=== PATIENT | male | born 1995 | race Caucasian/White ===

== ENCOUNTER 2021-09-13 21:52 | Inpatient (IN) | payer BC, MEDICAID, OTHER ==
[~2021-09-13] VITALS: Ht 177.8 cm; Wt 145.0 kg
[2021-09-13 22:32] LABS: Albumin 3.6 g/dL (3.4-5.0); Calcium 9.1 mg/dL (8.5-10.1)
[2021-09-13 22:36] LABS: BUN/Creatinine Ratio 13.3; Bilirubin, Total 0.7 mg/dL (0.2-1.0); Total Protein 7.3 g/dL (6.4-8.2)
[2021-09-13 22:57] LABS: Urine Bacteria NONE SEEN /hpf (None Seen); Urine Blood TRACE /uL (Negative); Urine Specific Gravity 1.021 (1.001-1.035); Urine WBC 1 /hpf (0 - 3)
[2021-09-13 23:07] LABS: Basophils # (auto) 0 10 ^3/uL (0-0.2); Basophils % (auto) 0.3 % (0.0-2.0); Eosinophils # (auto) 0 10 ^3/uL (0-0.8); Eosinophils % (auto) 0.2 % (0.0-7.0); Hematocrit 35.7 % (41.0-53.0); Hemoglobin 13.2 g/dL (13.5-17.5); Lymphocytes # (auto) 0.9 10 ^3/uL (0.4-5.4); Lymphocytes % (auto) 14.9 % (10.0-50.0); Mean Corpuscular Hemoglobin 31.9 pg (28.0-32.0); Mean Corpuscular Volume 86.5 fL (80.0-100.0); Monocytes # (auto) 0.5 10 ^3/uL (0-1.3); Monocytes % (auto) 8.9 % (0.0-12.0); Neutrophils # (auto) 4.6 10 ^3/uL (1.6-8.6); Neutrophils % (auto) 75.7 % (37.0-80.0); Red Blood Cells 4.13 10^6/uL (4.5-5.90); Red Cell Distribution Width 12.8 % (11.8-14.3)
[2021-09-13 23:18] LABS: Mean Corpuscular Hgb Conc. 36.9 g/dL (32.0-36.0)
[2021-09-14] MEDS ORDERED: PIPERACILLIN-TAZOB 3.375GM 100 ML IV ONE (00:45)
[2021-09-14] MEDS ORDERED: SODIUM CHLORIDE 0.9% 1,000 ML IV ONE (02:45)
[2021-09-14] MEDS ORDERED: ACETAMINOPHEN 325 MG TAB PO PRN (02:45)
[2021-09-14] MEDS: ONDANSETRON HCL 4 MG/2 ML VIAL IV PRN ×2 (03:43→20:48)
[2021-09-14] MEDS: MORPHINE SULFATE 4 MG/ML SYR/VIAL IV PRN ×4 (03:44→20:47)
[2021-09-14 04:39] VITALS: BP 119/70
[2021-09-14] MEDS: metroNIDAZOLE 500MG/100ML 100 ML IV SCH ×3 (06:20→22:57)
[2021-09-14 09:00] VITALS: BP 115/77
[2021-09-14] MEDS: FAMOTIDINE (10MG/ML) 2ML VL IV SCH (09:42)
[2021-09-14] MEDS: ENOXAPARIN SOD 40 MG/0.4 ML SYRINGE SC SCH (09:42)
[2021-09-14] MEDS: levoFLOXacin 500MG 100 ML IV SCH (09:42)
[2021-09-14 11:32] LABS: Basophils # (auto) 0 10 ^3/uL (0-0.2); Basophils % (auto) 0.2 % (0.0-2.0); Eosinophils # (auto) 0 10 ^3/uL (0-0.8); Eosinophils % (auto) 0.3 % (0.0-7.0); Hematocrit 31.4 % (41.0-53.0)
[2021-09-14] MEDS ORDERED: BUPIVACAINE W/ EPINEPH 0.25% INJ 50ML MDV ONE (11:34)
[2021-09-14 11:35] LABS: Hemoglobin 11.5 g/dL (13.5-17.5); Lymphocytes # (auto) 0.8 10 ^3/uL (0.4-5.4); Lymphocytes % (auto) 16.9 % (10.0-50.0); Mean Corpuscular Hemoglobin 31.8 pg (28.0-32.0); Monocytes # (auto) 0.4 10 ^3/uL (0-1.3); Neutrophils # (auto) 3.4 10 ^3/uL (1.6-8.6); Neutrophils % (auto) 73.6 % (37.0-80.0); Nucleated Red Blood Cells % 0.2 %; Red Blood Cells 3.61 10^6/uL (4.5-5.90); Red Cell Distribution Width 13.1 % (11.8-14.3); White Blood Cell 4.6 10^3/uL (4.4-10.8)
[2021-09-14 11:37] LABS: Mean Corpuscular Hgb Conc. 36.6 g/dL (32.0-36.0)
[2021-09-14] MEDS ORDERED: SUCCINYLCHOLINE CHLORIDE 20 MG/ML 10ML VIAL IV ONE (11:40)
[2021-09-14] MEDS ORDERED: MIDAZOLAM HCL 2MG/2ML 2ml VIAL (1mg/ml) ONE (11:48)
[2021-09-14] MEDS ORDERED: fentaNYL CITRATE 100 MCG/2 ML VL ONE (11:48)
[2021-09-14 11:49] LABS: INR 1.24 (0.9-1.15)
[2021-09-14] MEDS ORDERED: PROPOFOL 10 MG/ML 20 ML IV ONE (11:51)
[2021-09-14 11:54] LABS: Potassium 3.4 mmol/L (3.5-5.1)
[2021-09-14 12:10] LABS: Albumin 3.2 g/dL (3.4-5.0); BUN/Creatinine Ratio 13.9; Bilirubin, Total 0.7 mg/dL (0.2-1.0); Calcium 8.6 mg/dL (8.5-10.1); Total Protein 6.6 g/dL (6.4-8.2)
[2021-09-14 12:11] LABS: INR 1.24 (0.9-1.15); Partial Thromboplastin Time 36.2 sec (23.6-33.0)
[2021-09-14] MEDS ORDERED: ROCURONIUM 10MG/ML 10ML VIAL IV ONE (12:46)
[2021-09-14] MEDS ORDERED: DexAMETHasone SOD PHOS 10MG/1ML VIAL INJ ONE (12:54)
[2021-09-14 13:00] VITALS: BP 114/71
[2021-09-14] MEDS ORDERED: metroNIDAZOLE 500MG/100ML 100 ML IV ONE (13:10)
[2021-09-14] MEDS ORDERED: GLYCOPYRROLATE 0.2 MG/ML 1ML VIAL ONE (13:24)
[2021-09-14] MEDS ORDERED: NEOSTIGMINE 1 MG/ML INJ (10mg/10ML VIAL) ONE (13:24)
[2021-09-14] MEDS ORDERED: METOCLOPRAMIDE HCL 5MG/ml INJ 2ml VIAL IV PRN (13:45)
[2021-09-14] MEDS ORDERED: HYDROmorphone HCL 2 MG/ML VL IV PRN (13:45)
[2021-09-14] MEDS: HYDROmorphone HCL 2 MG/ML VL IV PRN ×2 (13:50→14:00)
[2021-09-14 17:00] VITALS: BP 119/75
[2021-09-15] MEDS: MORPHINE SULFATE 4 MG/ML SYR/VIAL IV PRN ×2 (04:18→08:31)
[2021-09-15] MEDS: metroNIDAZOLE 500MG/100ML 100 ML IV SCH ×2 (07:13→14:04)
[2021-09-15 08:20] VITALS: BP 108/66
[2021-09-15] MEDS: ENOXAPARIN SOD 40 MG/0.4 ML SYRINGE SC SCH (08:28)
[2021-09-15] MEDS: levoFLOXacin 500MG 100 ML IV SCH (08:28)
[2021-09-15 08:41] LABS: Potassium 4.2 mmol/L (3.5-5.1)
[2021-09-15 08:56] LABS: BUN/Creatinine Ratio 18.8; Bilirubin, Total 0.8 mg/dL (0.2-1.0); Calcium 8.8 mg/dL (8.5-10.1); Total Protein 6.6 g/dL (6.4-8.2)
[2021-09-15 09:23] LABS: Basophils # (auto) 0 10 ^3/uL (0-0.2); Basophils % (auto) 0.1 % (0.0-2.0); Eosinophils # (auto) 0 10 ^3/uL (0-0.8); Hematocrit 32.2 % (41.0-53.0); Hemoglobin 11.7 g/dL (13.5-17.5); Lymphocytes % (auto) 18.9 % (10.0-50.0); Mean Corpuscular Hemoglobin 31.6 pg (28.0-32.0); Mean Corpuscular Volume 86.6 fL (80.0-100.0); Monocytes # (auto) 0.6 10 ^3/uL (0-1.3); Monocytes % (auto) 11.9 % (0.0-12.0); Neutrophils # (auto) 3.8 10 ^3/uL (1.6-8.6); Neutrophils % (auto) 69.1 % (37.0-80.0); Nucleated Red Blood Cells % 0.1 %; Red Blood Cells 3.71 10^6/uL (4.5-5.90); Red Cell Distribution Width 13.2 % (11.8-14.3); White Blood Cell 5.4 10^3/uL (4.4-10.8)
[2021-09-15 09:26] LABS: Mean Corpuscular Hgb Conc. 36.5 g/dL (32.0-36.0)
[2021-09-15] MEDS: FAMOTIDINE (10MG/ML) 2ML VL IV SCH (09:47)
[2021-09-15] MEDS ORDERED: SODIUM CHLORIDE 0.9% 1,000 ML IV SCH (10:30)
[2021-09-15] MEDS ORDERED: HYDROcodone-ACET 10/325MG TAB PO PRN (10:30)
[2021-09-15 12:10] VITALS: BP 115/68
[2021-09-15 16:23] VITALS: BP 100/46
[2021-09-15] MEDS ORDERED: METR500T PO (18:05)
[2021-09-15] MEDS ORDERED: LEVO500T31 PO (18:05)
[2021-09-15 18:29] VITALS: BP 110/56
== END 2021-09-15 19:59 | disposition home or self-care (01) | DRG 342 ==
LOC: ER 21:52 → WEST WING 09-14 02:37 → EAST 09-14 23:14 → WEST WING 09-14 23:30
PROVIDERS: ADMIT Internal Medicine; ATTEND Family Medicine
PROC: 0DTJ4ZZ Resection of Appendix, Percutaneous Endoscopic Approach (ICD-10-PCS; principal; 2021-09-14 12:40)
DX: K35.80 Unspecified acute appendicitis (principal); D68.69 Other thrombophilia; R71.0 Precipitous drop in hematocrit; E86.0 Dehydration; Z20.822 Contact with and (suspected) exposure to COVID-19; Z88.0 Allergy status to penicillin
CPT/HCPCS: 36415; 74176; 76700; 76705; 80053; 81001; 83690; 85025; 85610; 85730; 86850; 86870; 86900; 86901; 87040; 87077; 87426; 96361; 96365; G0378; J0330; J1100; J1956; J2250; J2405; J2543; J2704; J3490